=== PATIENT | female | born 1965 | race Caucasian/White ===

== ENCOUNTER 2017-03-11 14:18 | Emergency (ER) | payer BC ==
[2017-03-11] MEDS ORDERED: methylPREDNISolone 125 MG* 2 ML VIAL IM ONE (15:41)
[2017-03-11] MEDS ORDERED: predniSONE TAB* 20 MG PO ONE (15:46)
[2017-03-11 16:21] VITALS: BP 146/92
--- NOTE | 2017-03-11 16:33 | UC ---
Irene Baxter Julia, scribed for Darci Holcomb MD on 03/11/17 at 1527 . General HPI - HPI Summary HPI Summary: This patient is a 51 year old F presenting to [facility] with a chief complaint of increased arthritic pain for the past week. Patient reports swelling in hands and joint pain all over specifically in knees, ankles, and wrists. Patient denies fever, chills, sore throat, rhinorrhea, or any other illness. The patient rates the pain 10/10 in severity. Symptoms aggravated while walking. Patient has chronic history of RA and OA. She reports relief of symptoms with steroid injections. She states she gets injections of Actemra that lasts roughly 12 months, and she has had her last dose roughly 16 months ago. Patient is seen by Dr. Carranza at [facility] for RA symptoms and flare ups and by Dr. Thompson as her PCP. Dr. Carranza was called, but is not available on Mondays. Dr. Clifton Huerta at [facility] was available at [phone], pager number [phone]. He will connect with Dr. Carranza. - History of Current Complaint Chief Complaint: UCGeneralIllness Stated Complaint: ARTHRITIC PAIN Time Seen by Provider: 03/11/17 15:17 Hx Obtained From: Patient Hx Last Menstrual Period: 06/25/15 Onset/Duration: Lasting Weeks Timing: Constant Pain Intensity: 10 Pain Location at: joints "all over" Aggravating: walking Associated Signs & Symptoms: Positive: Edema - in hands - Allergy/Home Medications Allergies/Adverse Reactions: Allergies Allergy/AdvReac Type Severity Reaction Status Date / Time No Known Allergies Allergy Verified 03/11/17 15:13 Home Medications: Home Medications Methotrexate* 25 mg IM WEEKLY 03/11/17 [History Confirmed 03/11/17] PMH/Surg Hx/FS Hx/Imm Hx - Additional Past Medical History Additional PMH: hx of RA and OA Other History Of: Negative For: Anticoagulant Therapy - Surgical History Surgical History: Yes Surgery Procedure, Year, and Place: Thumb fusion right thumb 12/2011. Bilateral Knee Replacements/Arthroscopies 08/2011,2009. Cholecystectomy 04/2008. Lap Band 2007. 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 Alcohol Use: None Substance Use Type: None Smoking Status (MU): Never Smoked Tobacco - Immunization History Most Recent Influenza Vaccination: UTD Most Recent Tetanus Shot: UTD Most Recent Pneumonia Vaccination: UTD Review of Systems Constitutional: Negative - fever, chills, sore throat, rhinorrhea, or any other illness Musculoskeletal: Edema - in hands, Other: - joint pain All Other Systems Reviewed And Are Negative: Yes Physical Exam Triage Information Reviewed: Yes Appearance: Well-Appearing, Well-Nourished Vital Signs: Initial Vital Signs Temp 98.4 F 03/11/17 15:07 Pulse 69 03/11/17 15:07 Resp 20 03/11/17 15:07 BP 135/72 03/11/17 15:07 Pulse Ox 100 03/11/17 15:07 Vital Signs Reviewed: Yes Eyes: Positive: Conjunctiva Clear ENT: Positive: Hearing grossly normal, Pharynx normal, TMs normal Neck: Positive: Supple, Nontender Respiratory: Positive: Chest non-tender, Lungs clear, Normal breath sounds, No respiratory distress Cardiovascular: Positive: RRR, No Murmur Abdomen Description: Positive: Nontender Musculoskeletal: Positive: Strength Intact, ROM Intact, Other: - no joint effusions Neurological: Positive: Alert, Muscle Tone Normal Psychological: Positive: Age Appropriate Behavior Skin Exam: Normal Course/Dx - Course Course Of Treatment: 51 yr old female on RA drugs and last injection a month ago. She feels a rheumatic flare coming on over several days. I have called her RA doctor in [place] and the Fellow covering him has been paged twice. The patient states that systemic steroids usually calm things down. Prednisone 60 mg ordered, and DC home. I have tried serveral times to reach her gun stock checker. The Fellow stated he was giving Dr Carranza my number to call me but no call back yet. The patient states she will call him tomorrow as he will be in the office. For further instructions. - - Differential Dx - Multi-Symptom Provider Diagnoses: Rheumatic flare. - Physician Notifications Instructed by Provider To: Other - Dr. Tere Jacobsen was first paged at 15:50. He was paged again at 15:55. He responded at 15:57 and stated he would contact Dr. Carranza and inform him to contact me about patient treatment. Recieved call from Dr. Carranza at 16:20 he agreed with 60 mg of prednisone. He will follow this week and see saturday. Discharge - Discharge Plan Condition: Good Disposition: HOME Patient Education Materials: Rheumatoid Arthritis (ED) Referrals: Jeff Thompson MD [Primary Care Provider] - Additional Instructions: Follow up with your Yard Conductor in [place] by phone tomorrow. The documentation as recorded by the Irene hauser Julia accurately reflects the service I personally performed and the decisions made by me, Darci Holcomb MD.
== END 2017-03-11 16:25 | disposition home or self-care (01) ==
LOC: UCEAST 14:18
DX: M06.9 Rheumatoid arthritis, unspecified (principal)
CPT/HCPCS: 99212; G0463; J7512

== ENCOUNTER 2017-05-07 07:07 | Emergency (ER) | payer BC ==
[2017-05-07 07:21] VITALS: BP 105/66
--- NOTE | 2017-05-07 07:30 | UC ---
Throat Pain/Nasal Mckinley HPI - HPI Summary HPI Summary: sinus pain and pressure x 10 days + nasal congestion, productive cough , pnd no fever, + chills - History of Current Complaint Chief Complaint: UCGeneralIllness Stated Complaint: COUGH,HEADACHE,SORE THROAT Time Seen by Provider: 05/07/17 07:20 Hx Obtained From: Patient Hx Last Menstrual Period: 06/25/15 Onset/Duration: Gradual Onset, Lasting Days - 10, Still Present Severity: Moderate Pain Intensity: 10 Cough: Productive - green sputum Associated Signs & Symptoms: Positive: Sinus Discomfort, Nasal Discharge. Negative: Dysphagia, FB Sensation, Drooling, Wheezing, Hoarseness, Fever, Vomiting, Rash - Allergies/Home Medications Allergies/Adverse Reactions: Allergies Allergy/AdvReac Type Severity Reaction Status Date / Time No Known Allergies Allergy Verified 03/11/17 15:13 PMH/Surg Hx/FS Hx/Imm Hx - Additional Past Medical History Additional PMH: Rheumatoid AND OSETOarthritis Other History Of: Negative For: Anticoagulant Therapy - Surgical History Surgical History: Yes Surgery Procedure, Year, and Place: Thumb fusion right thumb 12/2011. Bilateral Knee Replacements/Arthroscopies 08/2011,2009. Cholecystectomy 04/2008. Lap Band 2007. - Family History Known Family History: Positive: None, Hypertension, Other - great aunt with RA - Social History Alcohol Use: None Substance Use Type: None Smoking Status (MU): Never Smoked Tobacco - Immunization History Most Recent Influenza Vaccination: UTD Most Recent Tetanus Shot: UTD Most Recent Pneumonia Vaccination: UTD Review of Systems Constitutional: Chills, Fatigue Skin: Negative Eyes: Negative ENT: Sore Throat, Ear Ache, Nasal Discharge, Sinus Congestion, Sinus Pain/ Tenderness Respiratory: Cough Cardiovascular: Negative Gastrointestinal: Negative Genitourinary: Negative Is Patient Immunocompromised?: No All Other Systems Reviewed And Are Negative: Yes Physical Exam Triage Information Reviewed: Yes Appearance: Well-Appearing, No Pain Distress, Well-Nourished Vital Signs: Initial Vital Signs Temp 99.1 F 05/07/17 07:12 Pulse 80 05/07/17 07:12 Resp 16 05/07/17 07:12 BP 105/66 05/07/17 07:12 Pulse Ox 100 05/07/17 07:12 Vital Signs Reviewed: Yes Eyes: Positive: Conjunctiva Clear ENT: Positive: Normal ENT inspection, Hearing grossly normal, Pharyngeal erythema, Nasal congestion, TM bulging - right, Sinus tenderness. Negative: Nasal drainage, TM dull, TM red Neck exam: Normal Neck: Positive: Supple, Nontender, No Lymphadenopathy Respiratory: Positive: Chest non-tender, Lungs clear, Normal breath sounds, No respiratory distress Cardiovascular: Positive: RRR, No Murmur, Pulses Normal Skin Exam: Normal Skin: Negative: rashes Throat Pain/Nasal Course/Dx - Differential Dx/Diagnosis Provider Diagnoses: sinusitis Discharge - Sign-Out/Discharge Documenting (check all that apply): Discharge - Discharge Plan Condition: Stable Disposition: HOME Prescriptions: Amoxicillin/Clavulanate TAB* [Augmentin TAB 875*] 875 mg PO BID #20 tab predniSONE TAB* [Deltasone TAB*] 40 mg PO DAILY #10 tab Patient Education Materials: Sinusitis (ED) Referrals: No Primary Care Phys,NOPCP [Primary Care Provider] - 7 Days - Billing Disposition and Condition Condition: STABLE Disposition: HOME
== END 2017-05-07 07:31 | disposition home or self-care (01) ==
LOC: UCCORT 07:07
DX: J32.9 Chronic sinusitis, unspecified (principal)
CPT/HCPCS: 99212; G0463

== ENCOUNTER 2018-12-14 08:05 | Emergency (ER) | payer BC ==
--- OUTSIDE RECORDS SUMMARY | 2018-12-14 08:10 | XMS REPORT | Continuity of Care Document ---
:1965 External Reference #:[id number] Author Name Nasir Trammell DO MPH Address [address] [place] [address], [address] [place] [address] Care Team Providers Name Role Phone Jeff Thompson M.D. 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 Medicine Problems Description No Information Available Social History Type Date Description Comments Sex Unknown Tobacco Use Start: Unknown Never Smoked Cigarettes ETOH Use Never used alcohol Recreational Drug Use Never Used Drugs Tobacco Use Start: Unknown Patient has never smoked Smoking Status Reviewed: 11/20/18 Patient has never smoked Allergies, Adverse Reactions, Alerts Description No Known Drug Allergies Medications Active Medications SIG Qnty Indications Ordering Date Provider Dilaudid si every 8 90tabs Nasir Trammell, 06/12/2016 2mg Tablets hours as directed DO, MPH chronic pain patient. Opana si by mouth 150tabs Nasir Trammell, 06/12/2016 5mg Tablets every 4 to 6 DO, MPH hours as directed chronic pain patient. Oxycodone HCL si/4-1/2ml by 30ml Nasir Trammell, 10/28/2013 100mg/5ML mouth every 12 DO, MPH Concentrate hours as directed chronic pain patient Zanaflex si/2-1 by 90caps Nasir Trammell, 01/23/2013 4mg Capsules mouth three times DO, MPH a day as directed chronic pain patient Folic Acid 2 po qd 60caps Unknown 20mg Capsules Sertraline HCL si po q12h ud 60tabs Unknown 100mg Tablets Actemra monthly Unknown 200mg/10ML infusions. Solution Methotrexate Sodium 15mL injected Unknown (PF) once weekly. 250mg/10ML Solution Immunizations Description No Information Available Vital Signs Date Vital Result Comment 11/20/2018 3:35pm BP Systolic 124 mmHg BP Diastolic 76 mmHg Heart Rate 78 /min Respiratory Rate 20 /min Height 70 inches 5'10" Weight 180.00 lb Pain Level 7 Pain at this time. Pain Level With Medicine 6 on average with meds Pain Level Without Medicine 9 without meds BMI (Body Mass Index) 25.8 kg/m2 10/22/2018 3:44pm BP Systolic 132 mmHg BP Diastolic 84 mmHg Heart Rate 86 /min Respiratory Rate 20 /min Height 70 inches 5'10" Weight 180.00 lb Pain Level 5 Pain at this time. 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 D52.9 Folate deficiency anemia, unspecified F32.89 Other specified depressive episodes M25.561 Pain in right knee M25.562 Pain in left knee 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 Office Visit 09/10/2018 3:45p Main Office as Nasir Trammell G89.29 Other chronic Of 03/21/13 RAOUL HERNANDEZ pain M54.2 Cervicalgia 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 Z79.891 half-way (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 Office Visit 08/14/2018 2:00p Main Office as Nasir Trammell G89.29 Other chronic Of 03/21/13 DO MPH pain 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 M79.7 Fibromyalgia M54.2 Cervicalgia 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 Office Visit 07/16/2018 4:00p Main Office as Nasir Trammell G89.29 Other chronic Of 03/21/13 DO, MPH pain M79.7 Fibromyalgia 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 Z79.891 half-way (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 Office Visit 06/17/2018 3:30p Main Office as TrammellNasir joseph, G89.29 Other chronic Of 03/21/13 DO, MPH pain M79.7 Fibromyalgia 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 Z79.891 half-way (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 Assessments Date Code Description Provider 11/20/2018 G89.29 Other chronic pain Trammell, Nasir, DO, MPH 11/20/2018 M54.2 Cervicalgia Trammell, Nasir, DO, MPH 11/20/2018 M05.49 Rheumatoid myopathy with rheumatoid Trammell, Nasir, DO, MPH arthritis of multiple sites 11/20/2018 M79.7 Fibromyalgia Trammell, Nasir, DO, MPH 11/20/2018 M25.562 Pain in left knee Trammell, Nasir, DO, MPH 11/20/2018 M25.561 Pain in right knee Trammell, Nasir, DO, MPH 11/20/2018 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 Trammell, Nasir , DO, MPH 10/22/2018 G89.29 Other chronic pain Trammell, Nasir, DO, MPH 10/22/2018 M54.2 Cervicalgia Trammell, Nasir, DO, MPH 10/22/2018 M79.7 Fibromyalgia Trammell, Nasir, DO, MPH 10/22/2018 M05.49 Rheumatoid myopathy with rheumatoid Trammell, Nasir, DO, MPH arthritis of multiple sites 10/22/2018 D52.9 Folate deficiency anemia, unspecified Trammell, Nasir, DO, MPH 10/22/2018 F32.89 Other specified depressive episodes Trammell, Nasir, DO, MPH 10/22/2018 M25.561 Pain in right knee Trammell, Nasir, DO, MPH 10/22/2018 M25.562 Pain in left knee Trammell, Nasir, DO, MPH 10/22/2018 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 Trammell, Nasir , DO, MPH 09/10/2018 G89.29 Other chronic pain Trammell, Nasir, DO, MPH 09/10/2018 M54.2 Cervicalgia TrammellNasir joseph DO, MPH 09/10/2018 M05.49 Rheumatoid myopathy with rheumatoid Trammell, Nasir, DO, MPH arthritis of multiple sites 09/10/2018 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 Trammell, Nasir , DO, MPH 08/14/2018 G89.29 Other chronic pain TrammellLorenaph, DO, MPH 08/14/2018 M05.49 Rheumatoid myopathy with rheumatoid Trammell, Nasir, DO, MPH arthritis of multiple sites 08/14/2018 M79.7 Fibromyalgia TrammellLorena josephph DO, MPH 08/14/2018 M54.2 Cervicalgia TrammellNasir joseph DO, MPH 08/14/2018 Z79.891 half-way (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 TrammellNasir joseph , DO, MPH 07/16/2018 G89.29 Other chronic pain TrammellNasir joseph DO, MPH 07/16/2018 M79.7 Fibromyalgia TrammellNasir joseph DO, MPH 07/16/2018 M05.49 Rheumatoid myopathy with rheumatoid Trammell, Nasir, DO, MPH arthritis of multiple sites 07/16/2018 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 Symptoms and complaints discussed and reviewed today. No significant changes in physical findings. Continue current medical pain management.M54.2 CervicalgiaComments:Chronic. Symptoms and complaints discussed and reviewed today. No significant changes in physical findings. Continue current medical pain management.M05.49 Rheumatoid myopathy with rheumatoid arthritis of multiple sitesComments:Chronic. Symptoms and complaints discussed and reviewed today. No significant changes in physical findings. Continue current medical pain management.M79.7 FibromyalgiaComments:Chronic. Symptoms and complaints discussed and reviewed today. No significant changes in physical findings. Continue current medical pain management.M25.562 Pain in left kneeComments:Chronic.Symptoms and complaints discussed and reviewed today. No significant changes in physical findings. Continue current medical pain management.M25.561 Pain in right kneeComments:Chronic.Symptoms and complaints discussed and reviewed today. No significant changes in physical findings. Continue current medical pain management.Z79.891 half-way (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New Labs:Urine Drug Screen, Ordered: 11/20/18Comments:Urine drug screen sample taken today to monitor opiate use and to monitor use of illicit substances.Will discuss results at next appointment.The following tests were ordered:6 AM, AMPH, BERKLEY, RADHA, BUP, CARIS, COCM, COT, ETG, FENT, MCSHSG, OPI, OXY, PCP, TAPEN, XTSY, ZOLP. A urine drug test (UDT) was ordered for this patient and collected on site today. Creatinine has been ordered as well for specimen validity, not for kidney function. Preliminary UDT results are not final and should not be used to determine patient care or plan of treatment. Initially a qualitative immunoassay screen will be done. Any inconsistent or positive findings will be further tested with a more comprehensive quantitative confirmation LCMS study. It is part of the treatment process of prescribing controlled substances and is considered standard of care.AllComments:Continue current medical pain management; injection therapy, osteopathic manipulation, PT / modalities, and consults as needed to manage chronic pain.Non - opioid pain management discussed and optionsdiscussed.Side effects discussed; anticipatory guidance given. Patient clearly understand and agree with all medical treatments and suggestions. All medicines prescribed are adequate and appropriate for this patient's complaint of pain, medical history, physical, and personal goals.Goals of Treatment are to provide adequate and appropriate multidisciplinary medical pain management to increase/ maintain patient's quality of life and functionality while maintaining satisfactory side effect profile andminimizing intermission coordinator end-organ damage. Importance of regular nutrition throughout the day discussed.Activity as toleratedContinue with PCP Functional Status Description No Information Available Mental Status Description No Information Available Referrals Description No Information Available
--- OUTSIDE RECORDS SUMMARY | 2018-12-14 08:10 | XMS REPORT | Continuity of Care Document ---
:1965 External Reference #:[id number] Author Name Nasir Trammell DO MPH Address [address] [place] [address], [address] [place] [address] Care Team Providers Name Role Phone Jeff Thompson M.D. 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 Medicine Problems Description No Information Available Social History Type Date Description Comments Sex Unknown Tobacco Use Start: Unknown Never Smoked Cigarettes ETOH Use Never used alcohol Recreational Drug Use Never Used Drugs Tobacco Use Start: Unknown Patient has never smoked Smoking Status Reviewed: 10/22/18 Patient has never smoked Allergies, Adverse Reactions, [...] Available Vital Signs Date Vital Result Comment 10/22/2018 3:44pm BP Systolic 132 mmHg BP Diastolic 84 mmHg Heart Rate 86 /min Respiratory Rate 20 /min Height 70 inches 5'10" Weight 180.00 lb Pain Level 5 Pain at this time. Pain Level With Medicine 5 on average with meds Pain Level Without Medicine 9 without meds BMI (Body Mass Index) 25.8 kg/m2 09/10/2018 3:40pm BP Systolic 138 mmHg BP Diastolic 84 mmHg Heart Rate 82 /min Respiratory Rate 20 /min Height 70 inches 5'10" Weight 188.00 lb Pain Level 7 Pain at this time. 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 Office Visit 08/14/2018 2:00p Main Office as Nasir Trammell G89.29 Other chronic Of 03/21/13 , MPH pain 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 M79.7 Fibromyalgia M54.2 Cervicalgia 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 Office Visit 07/16/2018 4:00p Main Office as Nasir Trammell G89.29 Other chronic Of 03/21/13 DO, MPH pain M79.7 Fibromyalgia 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 Z79.891 care home (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 Office Visit 06/17/2018 3:30p Main Office as Nasir Trammell G89.29 Other chronic Of 03/21/13 DO, MPH pain M79.7 Fibromyalgia 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 Z79.891 care home (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 Office Visit 05/06/2018 3:45p Main Office as Trammell, Nasir, G89.29 Other chronic Of 03/21/13 DO, MPH pain M79.7 Fibromyalgia M54.2 Cervicalgia 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 Z79.891 care home (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 Assessments Date Code Description Provider 10/22/2018 G89.29 Other chronic pain Trammell, Nasir, [...] knee Trammell, Nasir, DO, MPH 10/22/2018 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 Trammell, Nasir , DO, MPH 09/10/2018 G89.29 Other chronic pain Trammell, Nasir, DO, MPH 09/10/2018 M54.2 Cervicalgia Trammell, Nasir, DO, MPH 09/10/2018 M05.49 Rheumatoid myopathy with rheumatoid Trammell, Nasir, DO, MPH arthritis of multiple sites 09/10/2018 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 Trammell, Nasir , DO, MPH 08/14/2018 G89.29 Other chronic pain Trammell, Nasri, DO, MPH 08/14/2018 M05.49 Rheumatoid myopathy with rheumatoid Trammell, Nasir, DO, MPH arthritis of multiple sites 08/14/2018 M79.7 Fibromyalgia Trammell, Nasir, DO, MPH 08/14/2018 M54.2 Cervicalgia Trammell, Nasir, DO, MPH 08/14/2018 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 Trammell, Nasir , DO, MPH 07/16/2018 G89.29 Other chronic pain TrammellNasir joseph DO, MPH 07/16/2018 M79.7 Fibromyalgia TrammellNasir joseph DO, MPH 07/16/2018 M05.49 Rheumatoid myopathy with rheumatoid TrammellNasir mcconnell DO, MPH arthritis of multiple sites 07/16/2018 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 TrammellNasir joseph DO, MPH 06/17/2018 G89.29 Other chronic pain TrammellLorena josephph, DO, MPH 06/17/2018 M79.7 Fibromyalgia TrammellNasir joseph DO, MPH 06/17/2018 M05.49 Rheumatoid myopathy with rheumatoid TrammellNasir, DO, MPH arthritis of multiple sites 06/17/2018 Z79.891 care home (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 TrammellNasir joseph DO, MPH 05/06/2018 G89.29 Other chronic pain TrammellNasir joseph DO, MPH 05/06/2018 M79.7 Fibromyalgia Nasir Trammell DO, MPH 05/06/2018 M54.2 Cervicalgia Nasir Trammell DO, MPH 05/06/2018 M05.49 Rheumatoid myopathy with rheumatoid TrammellNasir joseph, DO, MPH arthritis of multiple sites 05/06/2018 Z79.891 care home (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 Nasir Trammell DO, MPH Plan of Treatment Future Appointment(s):11/20/2018 3:45 pm - Nasir Trammell DO, MPH at Main Office as Of 03/21/1408 - Nasir Trammell DO, MPHG89.29 Other chronic [...] in physical findings. Continue current medical pain management.D52.9 Folate deficiency anemia, unspecifiedComments:Followed by Rheumatology. Will follow in terms pain management.F32.89 Other specified depressive episodesComments:Followed by PCP. Will follow as pertains to pain management and associated medications. Reassuranceand counseling given. Continue opioid pain ozzvetksotD61.561 Pain in right kneeComments:Chronic.Symptoms and complaints discussed and reviewed today. No significant changes in physical findings. Continue current medical pain management.M25.562 Pain in left kneeComments:Chronic.Symptoms and complaints discussed and reviewed today. No significant changes in physical findings. Continue current medical pain management.Z79.891 care home (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New Labs:Urine Drug Screen, Ordered: 10/22/18Comments: Urine drug screen sample taken today to monitor [...] while maintaining satisfactory side effect profile andminimizing 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 end-organ damage. Importance of regular nutrition throughout the day discussed.Activity as toleratedContinue with PCP Functional Status Description No Information Available Mental Status Description No Information Available Referrals Description No Information Available
[2018-12-14 08:16] VITALS: BP 119/71
--- NOTE | 2018-12-14 08:36 | UC ---
HPI Febrile Illness - HPI Summary HPI Summary: 53 yo woman with rheumatoid arthritis, with onset of fever about 6 hours ago, with temp to 102.5 by he report. has had 4 episodes of emesis. She is concerned that this represents a flare of her RA, which has presented in the past with fevers. Has no abdominal pain or diarrhea, sore throat, cough, dyspnea, rapid heart rate , dysuria or frequency. She has a mild headache in the occipital area, but no neck stiffness. Feels diffusely achey but has no increased joint swelling. She is on tocilizamad and recently began increased dose of prednisone, about 3 weeks ago. - History of Current Complaint Chief Complaint: UCGeneralIllness Time Seen by Provider: 12/14/18 08:16 Hx Obtained From: Patient Hx Last Menstrual Period: 06/25/15 Onset/Duration: Started Hours Ago - 6 Timing: Intermittent Initial Severity: Moderate Current Severity: Mild Pain Intensity: 0 Aggravating Factors: Nothing Alleviating Factors: OTC Medicine Associated Signs and Symptoms: Arthralgia - Allergy/Home Medications Allergies/Adverse Reactions: Allergies Allergy/AdvReac Type Severity Reaction Status Date / Time No Known Allergies Allergy Verified 12/14/18 08:16 Home Medications: Home Medications Ibuprofen TAB* [Motrin TAB* 800 MG] 800 mg PO Q6H PRN 12/14/18 [History Confirmed 12/14/18] PMH/Surg Hx/FS Hx/Imm Hx Previously Healthy: No Other History Of: Negative For: Anticoagulant Therapy - Surgical History Surgical History: Yes Surgery Procedure, Year, and Place: Thumb fusion right thumb 12/2011. Bilateral Knee Replacements/Arthroscopies 08/2011,2009. Cholecystectomy 04/2008. Lap Band 2007. - Family History Known Family History: Positive: Cardiac Disease - father of heart disease, Hypertension, Other - great aunt with RA - Social History Occupation: Employed Full-time Lives: With Family Alcohol Use: None Substance Use Type: None Smoking Status (MU): Never Smoked Tobacco - Immunization History Most Recent Influenza Vaccination: UTD Most Recent Tetanus Shot: UTD Most Recent Pneumonia Vaccination: UTD Review of Systems All Other Systems Reviewed And Are Negative: Yes Constitutional: Positive: Fever, Chills, Fatigue Skin: Positive: Negative Eyes: Positive: Negative ENT: Negative: Dental Pain, Sore Throat, Ear Ache, Sinus Congestion Respiratory: Negative: Shortness Of Breath, Cough Cardiovascular: Negative: Palpitations, Chest Pain Gastrointestinal: Positive: Vomiting, Nausea. Negative: Abdominal Pain, Diarrhea Genitourinary: Negative: Dysuria, Hematuria, Frequency, Urgency Motor: Positive: Negative Neurovascular: Positive: Negative Musculoskeletal: Positive: Arthralgia Neurological: Positive: Headache Is Patient Immunocompromised?: No Physical Exam Triage Information Reviewed: Yes Appearance: Ill-Appearing - looks mildly unwell, alert and coherent., Pain Distress - mild Vital Signs: Initial Vital Signs Temp 98.7 F 12/14/18 08:10 Pulse 78 12/14/18 08:10 Resp 16 12/14/18 08:10 BP 119/71 12/14/18 08:10 Pulse Ox 97 12/14/18 08:10 Eyes: Positive: Conjunctiva Clear ENT: Positive: Pharynx normal, TMs normal Neck: Positive: Supple, Nontender, No Lymphadenopathy Respiratory: Positive: Lungs clear, Normal breath sounds, No respiratory distress Cardiovascular: Positive: RRR, No Murmur, Pulses Normal Abdomen Description: Positive: Nontender, No Organomegaly, Soft Bowel Sounds: Positive: Present Musculoskeletal Exam: Other - no apparent active synovitis wrists, hands. Neurological: Positive: Alert, Muscle Tone Normal Psychological Exam: Normal Skin Exam: Normal Course/Dx - Course Course Of Treatment: We discussed that there is no obvious focus of infection. Offered to draw labs for evaluation, but she declined, and will follow up with Dr. Thompson and Dr. Barron tomorrow for advice. Aware that she should go to the emergency room if her symptoms progress. - Febrile Illness Differential Diagnoses: Bacteremia, Fever of Unknown Origin, Sepsis, Viremia, Other: - rheumatoid arthritis, gastroenteritis - Diagnoses Provider Diagnosis: Nausea and vomiting Discharge ED - Sign-Out/Discharge Documenting (check all that apply): Patient Departure All imaging exams completed and their final reports reviewed: No Studies - Discharge Plan Condition: Stable Disposition: HOME Prescriptions: Ondansetron TAB* [Zofran 4 MG Tab*] 4 mg PO Q6H PRN #10 tab PRN Reason: Nausea Patient Education Materials: Acute Nausea and Vomiting (ED) Forms: *Work Release Referrals: Jeff Thompson MD [Primary Care Provider] - Additional Instructions: Rapid flu testing was negative. At this time, rest at home. Use ondansetron 4mg for suppression of nausea and vomiting. If your fever and vomiting persists, or you become dehydrated, I advise that you go to the emergency room for testing and evaluation. Continue clear fluids and ibuprofen for additional relief of fever and joint pains. - Billing Disposition and Condition Condition: STABLE Disposition: Home
[2018-12-14 08:58] LABS: Influenza A Molecular NEGATIVE (Negative); Influenza B Molecular NEGATIVE (Negative)
== END 2018-12-14 09:05 | disposition home or self-care (01) ==
LOC: UCEAST 08:05
DX: R11.2 Nausea with vomiting, unspecified (principal); R50.9 Fever, unspecified; R51 Headache; M06.9 Rheumatoid arthritis, unspecified; Z79.899 Other long term (current) drug therapy
CPT/HCPCS: 99212; G0463